=== PATIENT | female | born 1990 | race Caucasian/White ===

== ENCOUNTER 2017-06-10 16:15 | Emergency (ER) | payer OTHER ==
[2017-06-10 17:22] LABS: BILIRUBIN,URINE NEGATIVE (NEGATIVE)
[2017-06-10 17:23] LABS: HCG UR QUAL NEGATIVE; UA CHARGE (STRIP ONLY) YES; UR CULTURE IF IND NOT INDICATED
[2017-06-10 17:42] LABS: BASOPHILS # (AUTO) 0.1 10^3/uL (0.0-0.1); BASOPHILS % (AUTO) 0.7 %; EOSINOPHILS # (AUTO) 0.1 10^3/uL (0.0-0.7); EOSINOPHILS % (AUTO) 1.4 %; HCT - HEMATOCRIT 39.4 % (37.0-47.0); HGB - HEMOGLOBIN 13.5 g/dL (12.0-16.0); LYMPHOCYTES # (AUTO) 1.7 10^3/uL (1.5-3.5); LYMPHOCYTES % (AUTO) 18.7 %; MEAN CORPUSCULAR HEMOGLOBIN 30.5 pg (27.0-31.0); MEAN CORPUSCULAR HGB CONC 34.2 g/dL (32.0-36.0); MEAN CORPUSCULAR VOLUME 89.3 fL (81.0-99.0); MEAN PLATELET VOLUME 9.5 fL (7.9-10.8); MONOCYTES # (AUTO) 0.6 10^3/uL (0.0-1.0); MONOCYTES % (AUTO) 6.6 %; NEUTROPHILS # (AUTO) 6.8 10^3/uL (1.5-6.6); NEUTROPHILS % (AUTO) 72.6 %; RED BLOOD COUNT 4.41 10^6/uL (4.20-5.40); RED CELL DISTRIBUTION WIDTH 12.5 % (12.0-15.0); UNCORRECTED WHITE BLOOD COUNT 9.3 x10^3/uL; WHITE BLOOD COUNT 9.3 x10^3/uL (4.8-10.8)
[2017-06-10 17:59] LABS: ALBUMIN/GLOBULIN RATIO 1.6 (1.0-2.2); BILIRUBIN,TOTAL 0.9 mg/dL (0.2-1.0); CALCIUM 9.3 mg/dL (8.5-10.3); CREATININE 0.7 mg/dL (0.4-1.0); TOTAL PROTEIN 7.3 g/dL (6.7-8.2)
--- NOTE | 2017-06-10 18:47 | ED Physician Documentation ---
PD HPI ABD PAIN - Stated complaint Stated Complaint: ABD PX - Chief complaint Chief Complaint: Abd Pain - History obtained from History obtained from: Patient - History of Present Illness Timing - onset: Other (Healthy 26-year-old woman with normal menses 3 weeks ago presents with gradual onset but constant diffuse abdominal pain radiating from the pelvis up to the upper quadrants on both sides with nausea but no vomiting and decreased appetite. No fevers.) Review of Systems Ten Systems: 10 systems reviewed and negative Constitutional: reports: Chills. denies: Fever Ears: reports: Reviewed and negative Nose: reports: Reviewed and negative Throat: reports: Reviewed and negative PD PAST MEDICAL HISTORY - Past Medical History Past Medical History: No - Past Surgical History Past Surgical History: No - Present Medications Home Medications: Ambulatory Orders Medication Instructions Recorded Confirmed Vit W-Ca,Fe,FA(<1 mg) 1 tab PO DAILY 03/23/15 03/23/15 [ Vitamins] - Allergies Allergies/Adverse Reactions: Allergies Allergy/AdvReac Type Severity Reaction Status Date / Time No Known Drug Allergies Allergy Verified 03/23/15 17:21 - Living Situation Living Situation: reports: With spouse/s.o. - Social History Does the pt smoke?: No Smoking Status: Never smoker Does the pt drink ETOH?: No Does the pt have substance abuse?: No - Family History Family history: reports: Non contributory PD ED PE NORMAL - Vitals Vital signs reviewed: Yes - General General: Alert and oriented X 3, No acute distress - HEENT HEENT: PERRL, EOMI - Neck Neck: Supple, no meningeal sign, No bony TTP - Cardiac Cardiac: RRR, No murmur - Respiratory Respiratory: No respiratory distress, Clear bilaterally - Abdomen Abdomen: Other (Normal bowel tones, soft, she is tender in the right lower quadrant, left lower quadrant, and left upper quadrant but not in the right upper quadrant. She does have rebound tenderness.) - Back Back: No CVA TTP, No spinal TTP - Derm Derm: Normal color, Warm and dry - Extremities Extremities: No edema, No calf tenderness / cord - Neuro Neuro: Alert and oriented X 3, Normal speech - Psych Psych: Normal mood, Normal affect Results - Vitals Vitals: Vital Signs - 24 hr 06/10/17 06/10/17 06/10/17 16:22 21:43 22:59 Temperature 36.3 C L 36.8 C Heart Rate 104 H 70 77 Respiratory 16 16 15 Rate Blood Pressure 138/92 H 126/68 138/76 H O2 Saturation 100 100 95 Oxygen O2 Source Room air - Labs Labs: Laboratory Tests 06/10/17 06/10/17 06/10/17 16:30 17:34 17:34 WBC 9.3 RBC 4.41 Hgb 13.5 Hct 39.4 MCV 89.3 MCH 30.5 MCHC 34.2 RDW 12.5 Plt Count 177 MPV 9.5 Neut # 6.8 H Lymph # 1.7 Garden # 0.6 Eos # 0.1 Baso # 0.1 Absolute Nucleated RBC 0.00 Nucleated RBCs 0.0 Sodium 138 Potassium 4.0 Chloride 101 Carbon Dioxide 30 Anion Gap 7.0 BUN 10 Creatinine 0.7 Estimated GFR (MDRD) 100 Glucose 102 H Calcium 9.3 Total Bilirubin 0.9 AST 21 ALT 14 Alkaline Phosphatase 44 Total Protein 7.3 Albumin 4.5 Globulin 2.8 Albumin/Globulin Ratio 1.6 Lipase 25 Urine Color YELLOW Urine Clarity CLEAR Urine pH 7.0 Ur Specific [place] <=1.005 Urine Protein NEGATIVE Urine Glucose (UA) NEGATIVE Urine Ketones NEGATIVE Urine Occult Blood NEGATIVE Urine Nitrite NEGATIVE Urine Bilirubin NEGATIVE Urine Urobilinogen 0.2 (NORMAL) Ur Leukocyte Esterase NEGATIVE Ur Microscopic Review NOT INDICATED Urine Culture Comments NOT INDICATED Urine HCG, Qual NEGATIVE 06/10/17 21:52 WBC RBC Hgb 12.8 Hct 36.8 L MCV MCH MCHC RDW Plt Count MPV Neut # Lymph # Garden # Eos # Baso # Absolute Nucleated RBC Nucleated RBCs Sodium Potassium Chloride Carbon Dioxide Anion Gap BUN Creatinine Estimated GFR (MDRD) Glucose Calcium Total Bilirubin AST ALT Alkaline Phosphatase Total Protein Albumin Globulin Albumin/Globulin Ratio Lipase Urine Color Urine Clarity Urine pH Ur Specific [place] Urine Protein Urine Glucose (UA) Urine Ketones Urine Occult Blood Urine Nitrite Urine Bilirubin Urine Urobilinogen Ur Leukocyte Esterase Ur Microscopic Review Urine Culture Comments Urine HCG, Qual - Rads (name of study) CT A/P Radiology: EMP read contemporaneously (Moderate hemoperitoneum in the pelvis with a small amount in the bilateral recesses, rounded increased density in the right posterior cul-de-sac measuring 2.9 x 5.1 cm could represent a hematoma, could be from a ruptured ovarian cyst, recommend pelvic ultrasound, normal appendix,) PD MEDICAL DECISION MAKING - ED course ED course: 26-year-old woman presents with a day worth of pelvic and bilateral abdominal pain, was tender on exam and was sent for CT after fairly normal labs and negative test, this showed hemoperitoneum, likely from ovarian cyst. The on-call photoengraving retoucher was consulted by phone, Dr. Pineda, about 9:45 PM who recommended given her normal labs and apparent stability a repeat H&H and pelvic ultrasound and if the H&H has not significantly dropped and the pelvic ultrasound shows a simple cyst she can be safely discharged with instructions to return if worse, however she has had a significant drop in the H&H or if there is some surprise on the ultrasound I will call him back. Departure - Departure Disposition: 01 Home, Self Care Clinical Impression: Ruptured ovarian cyst, Hemoperitoneum (nontraumatic) Condition: Good Record reviewed to determine appropriate education?: Yes Instructions: ED Cyst Ovarian Comments: Tylenol or ibuprofen as needed for pain. Return as discussed for dizziness, worsening pain or any other new symptoms. Call your doctor to arrange a follow-up appointment, make the next available appointment. In the interim, return anytime if worse or if new symptoms develop. Forms: Activity restrictions Discharge Date/Time: 06/10/17 23:03
[2017-06-10] MEDS ORDERED: IOPAMIDOL-300 50 ML VIAL ONE (19:05)
[2017-06-10] MEDS ORDERED: IOPAMIDOL-300 50 ML VIAL PO ONE (19:34)
[2017-06-10] MEDS ORDERED: IOPAMIDOL-300 100 ML VIAL ONE (20:18)
[2017-06-10] MEDS ORDERED: IOPAMIDOL-300 100 ML VIAL IVP ONE (20:39)
--- NOTE | 2017-06-10 21:44 | CT Report ---
EXAM: CT ABDOMEN AND PELVIS EXAM DATE: 06/10/2017 08:31 PM. CLINICAL HISTORY: Diffuse abdominal pain, tender to palpation. COMPARISONS: None. TECHNIQUE: Routine helical CT imaging was performed through the abdomen and pelvis. IV contrast: Yes, 100 mL Isovue 300. Enteric contrast: Yes. Reconstructions: Coronal and sagittal. In accordance with CT protocol optimization, one or more of the following dose reduction techniques w ere utilized for this exam: automated exposure control, adjustment of mA and/or KV based on patient s ize, or use of iterative reconstructive technique. FINDINGS: Lung Bases: Tiny 3 mm pulmonary nodule seen peripherally at the lateral right lower lobe. Minimal per icardial effusion. Liver: Normal. No masses. Gallbladder/Bile Ducts: Unremarkable. Spleen: Normal. Pancreas: Normal. Adrenal Glands: Normal. Kidneys: Normal. No masses or hydronephrosis. Peritoneal Cavity/Bowel: Moderate hemoperitoneum in the pelvis with a small amount in the bilateral l ateral recesses and adjacent to the inferior aspect of the liver. Rounded increased density seen in t he right posterior cul-de-sac measuring 2.9 x 5.1 cm, could represent a hematoma. Suspect other hemat omas layering posteriorly in the pelvis. No evidence for bowel obstruction. The appendix appears with in normal limits. No evidence for free air. Pelvic Organs: The uterus is anteverted. Bladder is unremarkable. Vasculature: No acute findings Bones: No acute bone findings IMPRESSION: 1. Moderate hemoperitoneum in the pelvis with a small amount in the bilateral lateral recesses and ad jacent to the inferior aspect of the liver. Rounded increased density seen in the right posterior cul -de-sac measuring 2.9 x 5.1 cm, could represent a hematoma. Suspect other hematomas layering posterio rly in the pelvis. This hemoperitoneum could be from a ruptured ovarian cyst. Recommend a pelvic ultr asound to further evaluate. 2. Normal appendix. 3. Tiny 3 mm pulmonary nodule seen peripherally at the lateral right lower lobe. No follow-up is brittany anted unless there is known primary malignancy as per Fleischner Society criteria. [facility] The above critical findings were discussed with Dr. Vegas by Dr. Kristie Tinsley at 21:39 hrs on . Referring Provider Line: [phone] SITE ID: [id number]
[2017-06-10 21:58] LABS: HCT - HEMATOCRIT 36.8 % (37.0-47.0); HGB - HEMOGLOBIN 12.8 g/dL (12.0-16.0)
[2017-06-10 23:00] VITALS: BP 138/76
--- NOTE | 2017-06-10 23:33 | Ultrasound Preliminary Report ---
Exam: US Pelvic Complete - Non OB IMPRESSION: 1. Enlarged right ovary measuring 34 cc with complex, probably hemorrhagic cyst. Blood flow is seen i n the ovary. 2. Moderate to large amount of complex free fluid consistent with a history of hemoperitoneum. Hemorr hagic right ovarian cyst is the most likely etiology. 3. Uterus and left ovary appear normal. [facility] SITE ID: [id number]
--- NOTE | 2017-06-10 23:33 | Ultrasound Preliminary Report ---
Exam: US TRANSVAGINAL IMPRESSION: 1. Enlarged right ovary measuring 34 cc with complex, probably hemorrhagic cyst. Blood flow is seen i n the ovary. 2. Moderate to large amount of complex free fluid consistent with a history of hemoperitoneum. Hemorr hagic right ovarian cyst is the most likely etiology. 3. Uterus and left ovary appear normal. [facility] SITE ID: [id number]
--- NOTE | 2017-06-10 23:36 | Ultrasound Report ---
EXAM: PELVIC ULTRASOUND EXAM DATE: 06/10/2017 11:07 PM. CLINICAL HISTORY: Hemoperitoneum. COMPARISON: CT, 06/10/2017. TECHNIQUE: Realtime transabdominal pelvic scan performed to identify the uterus and adnexa and as an overview of other pelvic structures, followed by transvaginal scan to provide greater detail of the u terus and adnexa, with static image documentation. FINDINGS: Uterus: 7.9 x 3.8 x 4.7 cm, volume 75 cc. Anteverted position. Normal overall size and echotexture. Masses: None. Endometrium: 5 mm. Normal. Cervix: Trace fluid in the endocervical canal. Right Ovary: 5.7 x 3.3 x 3.4 cm, volume 34 cc. Complex cyst measuring 2.4 x 3.4 cm. Blood flow is see n in the ovary. Left Ovary: 2.7 x 3.9 x 2.4 cm, volume 12.9 cc. Normal echotexture and blood flow. Free Fluid: Moderate to large amount of complex fluid consistent with a history of hemoperitoneum. Other: None. IMPRESSION: 1. Enlarged right ovary measuring 34 cc with complex, probably hemorrhagic cyst. Blood flow is seen i n the ovary. 2. Moderate to large amount of complex free fluid consistent with a history of hemoperitoneum. Hemorr hagic right ovarian cyst is the most likely etiology. 3. Uterus and left ovary appear normal. [facility] Referring Provider Line: [phone] SITE ID: [id number]
== END 2017-06-10 23:03 | disposition home or self-care (01) ==
LOC: ED 16:15
DX: N83.291 Other ovarian cyst, right side (principal); K66.1 Hemoperitoneum
CPT/HCPCS: 36415; 74177; 76830; 76856; 80053; 81003; 81025; 83690; 85014; 85018; 85025; 99283; 99284; Q9967; 81001; 87086